=== PATIENT | female | born 1990 | race Caucasian/White ===

== ENCOUNTER 2018-11-17 06:23 | Day surgery (SDC) | payer BC ==
[2018-11-17] MEDS ORDERED: Sodium Chloride 0.9% 10 ML Syringe FLUSH PRN (07:00)
[2018-11-17] MEDS: Lactated Ringers 1,000 ML IV SCH (07:12)
[2018-11-17] MEDS ORDERED: Midazolam 1 MG/ML 2 ML SDV ONE (07:28)
[2018-11-17] MEDS ORDERED: fentaNYL 100 MCG/2 ML SDV ONE (07:28)
[2018-11-17] MEDS ORDERED: Propofol 200 MG/20 ML SDV ONE (07:28)
[2018-11-17 08:47] VITALS: BP 113/63
--- NOTE | 2018-11-17 08:57 | OR ---
PREOPERATIVE DIAGNOSES: 1. Constipation. 2. Rectal bleeding. POSTOPERATIVE DIAGNOSES: Normal colonoscopic exam, biopsies pending. PROCEDURE PROPOSED/PROCEDURE DONE: Total flexible colonoscopy with multiple random biopsies. INDICATIONS: This is a 27-year-old female who has had significant constipation and significant amount of rectal bleeding for the past few months. She denies any family history of bowel disease. She denies any evidence of hemorrhoids with tissue protruding or external tissue and she comes in for recommended colonoscopy. TECHNIQUE: The patient was brought to the endoscopy suite, placed in a left lateral decubitus position. She was sedated per [employer] with propofol. The flexible video colonoscope was then passed transanally and under visualization advanced to the cecum. Examination revealed normal ascending, transverse, descending, sigmoid, and rectal colon. She had some areas of thick green fluid in her colon requiring irrigation and suctioning to get the bowel cleaned out. There were no abnormalities noted throughout the colon. No signs of any diverticular disease, polyps, colitis, or any other abnormalities. Multiple random biopsies were taken from all levels of the colon and the scope was then withdrawn. She tolerated the procedure well. FINAL IMPRESSION: Normal colonoscopic exam. PLAN: The patient will be seen sent a letter with pathology report. I felt that she needs to have anoscopy with possible hemorrhoid banding done while under sedation. SCM: 11/17/2018 08:21:40 MODL: 11/17/2018 08:48:53 /[id number]
--- NOTE | 2018-11-17 09:02 | OR ---
PREOPERATIVE DIAGNOSIS: Rectal bleeding. POSTOPERATIVE DIAGNOSIS: Rectal bleeding with the ulcerated internal hemorrhoid to right anterior quadrant. PROCEDURE PROPOSED: Anoscopy with possible hemorrhoid banding. PROCEDURE DONE: Endoscopy with hemorrhoid banding x1. INDICATIONS: The patient has been having significant amount of rectal bleeding with constipation. Her colonoscopy was normal. TECHNIQUE: She was already sedated from a colonoscopy. The anoscope was then inserted and all 3 quadrants were inspected. The right posterior quadrant and left lateral quadrant quadrants appeared normal, but in the right anterior quadrant, she seemed to have an ulcerated internal hemorrhoid which I felt it could be treated with hemorrhoid banding. I therefore did a suction hemorrhoid banding technique, obtaining a good amount of tissue into the banded portion. She tolerated this procedure well. FINAL IMPRESSION: Ulcerated internal hemorrhoid right anterior quadrant banded. PLAN: She was given appropriate instructions about hemorrhoid banding and I felt that she should use some Anusol-HC suppositories after about 2 weeks when the internal hemorrhoid likely has fallen off and I recommend she do that for about 12 evenings in a row and to follow up in the clinic if she is having any ongoing issues. SCM: 11/17/2018 08:21:40 MODL: 11/17/2018 08:51:57 /[id number]
== END 2018-11-17 09:55 | disposition home or self-care (01) ==
LOC: VM.SDS 06:23
PROVIDERS: ATTEND Surgery
DX: K62.5 Hemorrhage of anus and rectum (principal); K64.8 Other hemorrhoids; K59.00 Constipation, unspecified; J45.909 Unspecified asthma, uncomplicated; E66.3 Overweight; Z68.28 Body mass index [BMI] 28.0-28.9, adult; Z79.899 Other long term (current) drug therapy; Z88.1 Allergy status to other antibiotic agents
CPT/HCPCS: 45380; 46221; 81025; J2250; J2704; J3010; J7120

== ENCOUNTER 2024-11-13 12:17 | Emergency (ER) | payer OTHER, BC ==
[2024-11-13 12:31] LABS: BASOPHILS PERCENT AUTO 0.3 % (0.2-1.2); EOSINOPHILS ABSOLUTE AUTO 0.2 x10^3/uL (0.0-0.5); HEMATOCRIT 31.4 % (33.0-47.0); HEMOGLOBIN 10.2 g/dL (12.0-16.0); IMMATURE GRAN ABSOLUTE AUTO 0.02 x10^3/uL (0.00-0.07); LYMPHOCYTES PERCENT AUTO 22.4 % (25.0-50.0); MEAN CORPUSCULAR HEMOGLOBIN 27.1 pg (26.0-32.0); MEAN CORPUSCULAR HGB CONC 32.5 g/dL (32.0-36.0); MEAN CORPUSCULAR VOLUME 83.3 fL (78.0-93.0); MONOCYTES ABSOLUTE AUTO 0.6 x10^3/uL (0.0-0.8); MONOCYTES PERCENT AUTO 6.7 % (2.0-11.0); NEUTROPHILS ABSOLUTE AUTO 6.2 x10^3/uL (1.8-7.7); NEUTROPHILS PERCENT AUTO 68.4 % (50.0-80.0); PLATELET COUNT,PLT 193 x10^3/uL (130-400); RED BLOOD CELL COUNT 3.77 x10^6/uL (4.00-5.50); WHITE BLOOD CELL COUNT,WBC 9.1 x10^3/uL (4.0-10.0)
[2024-11-13 12:47] LABS: ALANINE AMINOTRANSFERASE,ALT 17 U/L (14-59); ALBUMIN 2.4 g/dL (3.4-5.0); ALKALINE PHOSPHATASE 137 U/L (46-116); ANION GAP 14.6 mmol/L (5-15); ASPARTATE AMNIOTRANSFERASE,AST 13 U/L (15-37); BILIRUBIN TOTAL 0.1 mg/dL (0.2-1.0); BLOOD UREA NITROGEN,BUN 8 mg/dL (7-18); CALCIUM 8.3 mg/dL (8.5-10.1); CARBON DIOXIDE,CO2 24 mmol/L (21-32); CHLORIDE,CL 103 mmol/L (98-107); CREATININE 0.6 mg/dL (0.55-1.02); ESTIMATED GFR 122 mL/min (>=60); GLUCOSE RANDOM 113 mg/dL (70-99); POTASSIUM,K 3.6 mmol/L (3.5-5.1); PROTEIN TOTAL,TP 6.4 g/dL (6.4-8.2); SODIUM,NA 138 mmol/L (136-145)
[2024-11-13 16:35] VITALS: BP 127/73; PULSE 86
== END 2024-11-13 14:32 | disposition home or self-care (01) ==
LOC: VM.ED 12:17
DX: O9A.213 Injury, poisoning and certain other consequences of external causes complicating pregnancy, third trimester (principal); S02.2XXA Fracture of nasal bones, initial encounter for closed fracture; Z3A.00 Weeks of gestation of pregnancy not specified; Z88.0 Allergy status to penicillin; Z79.899 Other long term (current) drug therapy; V48.0XXA Car driver injured in noncollision transport accident in nontraffic accident, initial encounter; Y93.89 Activity, other specified
CPT/HCPCS: 70450; 70486; 72125; 80053; 85025; 99284; 99285